=== PATIENT | male | born 1980 | race Two or more races ===

== ENCOUNTER 2016-08-01 11:56 | Emergency (ER) | payer OTHER ==
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
[2016-08-01 12:54] LABS: ABSOLUTE LYMPHOCYTES (AUTO) 2.4 10^3/uL (0.5-4.7); ABSOLUTE MONOCYTES (AUTO) 0.4 10^3/uL (0.1-1.4); ABSOLUTE NEUT (AUTO) 4.5 10^3/uL (1.7-8.2); BASOPHILS % (AUTO) 0.4 % (0-2); EOSINOPHILS % (AUTO) 0.4 % (0-6); HEMATOCRIT 43.5 % (37.9-51.0); HEMOGLOBIN 14.6 g/dL (13.5-17.0); HGB HCT DIFFERENCE 0.3; LYMPHOCYTES % (AUTO) 32.7 % (13-45); MEAN CORPUSCULAR HGB CONC 33.6 g/dL (32.0-36.0); MEAN CORPUSCULAR VOLUME 83 fl (80-97); MONOCYTES % (AUTO) 5.4 % (3-13); RED BLOOD COUNT 5.22 10^6/uL (4.35-5.55); RED CELL DISTRIBUTION WIDTH 13.7 % (11.5-14.0); SEGMENTED NEUTROPHILS % (AUTO) 61.1 % (42-78); WHITE BLOOD COUNT 7.3 10^3/uL (4.0-10.5)
[2016-08-01 13:03] LABS: APPEARANCE,URINE CLEAR; BILIRUBIN,URINE NEGATIVE (NEGATIVE); GLUCOSE, URINE 50 mg/dL (NEGATIVE); KETONES,URINE NEGATIVE (NEGATIVE); LEUKOCYTE ESTERASE,URINE NEGATIVE (NEGATIVE); NITRITE,URINE NEGATIVE (NEGATIVE); PROTEIN,URINE NEGATIVE (NEGATIVE); URINE SPECIFIC GRAVITY 1.027; UROBILINOGEN,URINE NEGATIVE mg/dL (<2.0)
[2016-08-01 13:11] LABS: ALANINE AMINOTRANSFERASE 40 U/L (21-72); ALBUMIN 4.4 g/dL (3.5-5.0); ALKALINE PHOSPHATASE 92 U/L (38-126); ANION GAP 15 (5-19); ASPARTATE AMINO TRANSFERASE 27 U/L (17-59); BILIRUBIN,DIRECT 0.2 mg/dL (0.0-0.4); BILIRUBIN,TOTAL 0.6 mg/dL (0.2-1.3); BLOOD UREA NITROGEN 17 mg/dL (7-20); CALCIUM 9.6 mg/dL (8.4-10.2); CARBON DIOXIDE 27 mmol/L (22-30); CHLORIDE 102 mmol/L (98-107); CREATININE RESULT 0.78 mg/dL (0.52-1.25); GLUCOSE 138 mg/dL (75-110); LIPASE 55.8 U/L (23-300); POTASSIUM 4.4 mmol/L (3.6-5.0); SODIUM 144.1 mmol/L (137-145); TOTAL PROTEIN 7.3 g/dL (6.3-8.2)
[2016-08-01] MEDS ORDERED: NORMAL SALINE 1000 ML 1,000 ML IV ONE (13:25)
[2016-08-01] MEDS ORDERED: CIPROFLOXACIN HCL 500 MG TABLET PO ONE (18:45)
[2016-08-01] MEDS ORDERED: METRONIDAZOLE 500 MG TABLET PO ONE (18:45)
[2016-08-01 20:41] VITALS: BP 135/80
== END 2016-08-01 19:03 | disposition home or self-care (01) ==
LOC: ER 11:56
DX: K52.89 Other specified noninfective gastroenteritis and colitis (principal); R10.32 Left lower quadrant pain; R03.0 Elevated blood-pressure reading, without diagnosis of hypertension
CPT/HCPCS: 36415; 74177; 80053; 81001; 83690; 85025; 99284

== ENCOUNTER → 2016-09-23 | Outpatient (CLI) | payer OTHER ==
--- NOTE | 2016-10-01 09:28 | RADIOLOGY REPORT (SQ) ---
EXAM DESCRIPTION: CT HEAD WITHOUT COMPLETED DATE/TIME: 09/23/2016 8:34 pm REASON FOR STUDY: CHOLESTEATOMA OF ATTIC, LEFT EAR H71.02 CHOLESTEATOMA OF ATTIC, LEFT EAR COMPARISON: CT brain 04/04/2014 TECHNIQUE: Noncontrasted thin section axial images through the temporal bones and skull base were ob tained and reviewed at bone windows and bone algorithm with coronal and sagittal reconstructions. All CT scanners at this facility use dose modulation, iterative reconstruction, and/or weight based d osing when appropriate to reduce radiation dose to as low as reasonably achievable (ALARA). [facility]: Dose Right [facility]: CareDose [facility]: Dose Right [facility]: Teradose 4D [facility]: Nobl RADIATION DOSE: 19.40 mGy. LIMITATIONS: None. FINDINGS: RIGHT SIDE: EXTERNAL AUDITORY CANAL: Widely patent. TYMPANIC MEMBRANE: No masses, thickening or medial retraction. OSSICLES AND MIDDLE EAR CAVITY: Normal ossicles. No middle ear masses or fluid. INNER EAR STRUCTURES: Normal vestibule and cochlea. Normal aqueducts. INTERNAL AUDITORY CANAL: Normal bony canal without narrowing or widening. No calcified or ossified m asses. TEMPOROMANDIBULAR JOINT: Normal. MASTOID AIR CELLS: Trace fluid in the right mastoid air cells LEFT SIDE: EXTERNAL AUDITORY CANAL: Widely patent. TYMPANIC MEMBRANE, OSSICLES AND MIDDLE EAR CAVITY: There is thickening of the upper half of the left tympanic membrane, extending into the epitympanum between the ossicles and scutum, into the superior half of the middle ear cavity encasing the incuostapedial joint. Malleus is significantly deminerali zed. Incus partially demineralized. Stapes is not well seen. This most likely represents a cholest eatoma, best shown on coronal images 168-178, and axial images 79 through 93. Soft tissue extends po steriorly into the pyramidal recess of the middle ear cavity. Overall, the soft tissue measures 8 mm transverse by 4.5 mm craniocaudad by 6 mm AP INNER EAR STRUCTURES: Normal vestibule and cochlea. Normal aqueducts. INTERNAL AUDITORY CANAL: Normal bony canal without narrowing or widening. No calcified or ossified m asses. TEMPOROMANDIBULAR JOINT: Normal. MASTOID AIR CELLS: Left mastoid fluid. CENTRAL SKULL BASE: Normal foramina. No lytic or blastic lesions. INFERIOR BRAIN: Limited view. No acute findings. LIMITED VIEW OF PARANASAL SINUSES IN THE FIELD OF VIEW: Normal. IMPRESSION: Soft tissue in the left epitympanum surrounding the ossicles, with demineralization of o ssicles and extension into the pyramidal recess of the middle ear cavity. This most likely represent s a cholesteatoma. TECHNICAL DOCUMENTATION: JOB ID: [id number] Quality ID # [id number]: Final reports with documentation of one or more dose reduction techniques (e.g., Au tomated exposure control, adjustment of the mA and/or kV according to patient size, use of iterative reconstruction technique) 2010 [employer]- All Rights Reserved
== END ==
LOC: RAD 07:32
PROVIDERS: ATTEND Otolaryngology
DX: H71.02 Cholesteatoma of attic, left ear (principal)
CPT/HCPCS: 70450

== ENCOUNTER 2016-12-29 06:38 | Day surgery (SDC) | payer OTHER ==
[2016-12-29] MEDS ORDERED: LIDOCAINE 1%/EPINEPHRINE INJ 20 ML VIAL ONE ×2 (06:53→06:55)
[2016-12-29] MEDS ORDERED: CIPROFLOXACIN HCL/DEXAMETH OTIC DROP 7.5 ML ONE (06:53)
[2016-12-29] MEDS ORDERED: EPINEPHRINE INJ 30 MG/30 ML VIAL ONE (06:54)
[2016-12-29] MEDS ORDERED: MIDAZOLAM 2 MG/2 ML INJ ONE ×2 (06:58→07:11)
[2016-12-29] MEDS ORDERED: ONDANSETRON HCL INJ/PF 4 MG/2 ML SDV ONE (07:02)
[2016-12-29] MEDS ORDERED: FENTANYL CITRATE INJ/PF 250 MCG/5 ML AMPULE ONE (07:02)
[2016-12-29] MEDS ORDERED: ACETAMINOPHEN 100 ML IV ONE (07:03)
[2016-12-29] MEDS ORDERED: DEXAMETHASONE SOD PHOS INJ 10 MG/1 ML VIAL ONE (07:03)
[2016-12-29] MEDS ORDERED: SUCCINYLCHOLINE CHLORIDE INJ 200 MG/10 ML VIAL ONE (07:03)
[2016-12-29] MEDS ORDERED: LIDOCAINE 0.5% INJ-PF (5 MG/ML) 50 ML SDV ONE (07:03)
[2016-12-29] MEDS ORDERED: PROPOFOL INJ 200 MG/20 ML VIAL IV ONE (07:03)
[2016-12-29] MEDS ORDERED: SCOPOLAMINE HYDROBROMIDE 1.5 MG PATCH.TD72 TD PRN (07:26)
[2016-12-29] MEDS ORDERED: BACITRACIN ZINC OINTMENT 15 GM TP PRN (08:46)
[2016-12-29] MEDS ORDERED: HYDROMORPHONE HCL INJ/PF 2 MG/ML AMPULE ONE (11:49)
[2016-12-29] MEDS ORDERED: WATER FOR INJECTION,STERILE 10 ML SDV ONE (12:12)
[2016-12-29] MEDS ORDERED: ACETAMINOPHEN 325 MG TABLET ONE (14:24)
[2016-12-29] MEDS ORDERED: FENTANYL CITRATE INJ/PF 100 MCG/2 ML AMPUL ONE (14:46)
--- NOTE | 2016-12-29 23:32 | OPERATIVE REPORT E ---
Operative Report NAME: OSCAR GRANT : 1980 AGE: 36Y DATE OF SURGERY: 12/29/2016 ROOM: PREOPERATIVE DIAGNOSIS: Left attic cholesteatoma. POSTOPERATIVE DIAGNOSES: 1. Large attic cholesteatoma. 2. Absent left incus and stapes superstructure and erosion of the head of the malleus. OPERATION PERFORMED: 1. Left modified radical mastoidectomy with tympanoplasty. 2. Facial nerve monitoring x1 hour. SURGEON: RADHA PEARL M.D. AMMONIUM HYDROXIDE OPERATOR: None. ANESTHESIA: General, Dr. Krishna with Dorene Tom CRNA. PRIMARY CARE PROVIDER: JEREMIAS Meraz PRE-OP NOTE: This is a 36-year-old man originally from the [facility] [place] who has been followed in this facility since February of 2013. He was seen at that point by Dr. Lobo Yen and actually underwent bilateral endoscopic sinus surgery. In July 2013 he was referred back to the office to have his ears cleaned because he could not have an audiometric assessment done because of cerumen impaction. Having done that, it was clear that he had fluid in the left ear and an air fluid level on the right. In September of 2013 he underwent an office myringotomy on the left-hand side. In followup, it was noted that the tube was patent, 6 months later, although Dr. Yen noticed an "abnormality" behind that left drum which may be significant. There was an air fluid level on the right. Eventually, he underwent a right myringotomy and tube and at followup, in late to mid February of 2014, that tube was functioning fine. The next time he was seen was on 08/20/2016, and he reported that the tube that he had had placed in the left ear had worked well for him for years. He had been going to the [place] for his care in between times. He noted new onset bleeding from this left ear at this time, and he attributed that to having been in a hot tub while on vacation in [place]. The [place] gave him drops for his ear and then one of the [place] physicians apparently retrieved the tube out of the left external canal. However, he continued to have daily bloody otorrhea. Microscope exam at the time was difficult, and he was placed on Cortisporin otic suspension to soften up the dried blood clot and then he was seen back in followup approximately a week later, and, at that point, suctioning revealed an attic cholesteatoma. He was then scheduled for a CT scan of the temporal bones at [facility] and also for an audiometric assessment. The CT scan was positive for a soft tissue mass in the left attic. There is also mastoid sclerosis bilaterally, but this is much more obvious on the left-hand side, together with lateralization of the left sigmoid sinus which is very close to the outer cortex of the bone there. There was additionally soft tissue density within both the left middle ear, the mastoid and the aditus ad antrum. This appeared to involve the ossicles as well. The tegmen appeared clear. He was scheduled for a left modified radical tympanomastoidectomy and consent was obtained at that time. In the time it took to obtain an authorization for all this, the patient indicated that he would like to delay surgery until December. However, even though the patient was informed that that was not medically advisable, he continued to state that he wanted to wait until late December. He now comes in to have this procedure done. He was seen in pre-op yesterday. The patient was seen and identified in the pre-op holding area. His is present, together with his daughter and his own mother and his younger brother. The left ear was then marked for laterality. The left postauricular area was cleansed with an alcohol prep pad and dried and then the intended incision line was marked out with a skin-marking pen together with crosshatching for matching up the wound edges. The patient was then taken to the operating room, placed in supine position, general anesthesia was induced and an oral endotracheal tube was placed. The patient was carefully positioned. The left ear was further shaved. It was decided to place a Mccabe catheter at this point, as the intended procedure was going to likely take longer than 3 hours. The facial nerve monitoring electrodes were then all placed and tested and appeared to be functioning satisfactorily. The left ear was then prepped and draped for otologic surgery. A short timeout was taken and all issues relating to the patient's identity, his positioning on the table, the procedures to be undertaken, and the risks inherent thereto were all discussed and there were no matters arising. The operating microscope was then brought into the field and the left ear was examined. The ear was irrigated multiple times and suctioned. A great deal of desquamating material was removed. The attic perforation was identified with cheesy squamous debris emanating from this. The external canal was then infiltrated using 1% lidocaine with 1:100,000 epinephrine using a 25 gauge needle and control syringe. The same material was used to infiltrate the postauricular skin crease area. Radial incisions were then brought out at approximately 6 o'clock and 12 o'clock using a sickle knife. These were joined on the bony ear canal with a round canal knife, leaving a generous posterosuperior corner. A tympanomeatal flap was developed for a short distance but not as far as the annulus. The laterally-based posterior canal flap was then developed in a lateral direction for a short distance. Next, the skin incision was made with a #15 blade on a #7 handle. Bleeding points were secured with needle point electrocautery, initially set at 25 on coagulating current. Dissection was done from here using curved Iris scissors. This instrument was utilized to take the incision down to the level of the "fool's fascia." Dissection was then taken anteriorly, following the inferior border of the temporalis muscle here. The inferior border of the temporalis muscle was then confirmed using needle point electrocautery. A perpendicular incision was then dropped at right angles from that, using needle point electrocautery, passing inferiorly along the lateral aspect of the left mastoid cortex. Periosteal elevation was then done. Weitlaner self-retaining retractor was inserted. The periosteal elevation was done as far as the bony external auditory canal. A [place] elevator was then utilized to find the spine of Henle which was not particularly well marked. The laterally-based posterior canal wall flap was then retracted back through the external canal using a 2-0 chromic catgut suture. A large piece of fool's fascia was then harvested and cleansed and stored in the fascia press temporarily. Once all the moisture had been squeezed out of it, it was placed on an inverted metal medicine cup to dry. Next, a large piece of temporalis fascia was harvested and this was cleansed and stored in the fascia press. Bleeding points were secured with needle point electrocautery. A Gilliland self-retaining retractor was inserted, and the external canal was examined with the microscope . It became evident that there was reduplication of the external canal bone where the tympanic ring attached to the temporal bone. This was carefully drilled down using a 2 mm kathleen suman with copious irrigation. This allowed for exploration down to the attic perforation. Elevation of the tympanomeatal flap was then taken down to the annulus. The chorda tympani nerve was then identified. It rapidly became apparent that this appeared to be lying in contact with the cholesteatoma sac, which appeared to be passing inferiorly and medial to that structure. Careful elevation was therefore done of the annulus inferior to this point. It rapidly became apparent that there was a large cholesteatoma sac passing inferiorly into the middle ear for a considerable distance, the dimensions of which could not easily be ascertained at this point. It was therefore decided to perform an antrotomy and establish the level of disease evident in the aditus ad antrum and into the mastoid antrum itself. Accordingly, a large cutting suman was taken and drilling was commenced over the mastoid cortex. The mastoid bone was fairly sclerotic. There were areas of chicken fat and straw-colored fluid. The sigmoid sinus was found in the expected lateral location. This was carefully skeletonized. Dissection was taken inferiorly down into the mastoid tip. The dissection was then taken superiorly to Citelli's angle. This was confirmed. The dissection was then taken forwards following the middle cranial fossa dura. The antrotomy was gently widened but it rapidly became apparent that there was a large cholesteatoma sac passing posteriorly into the mastoid. Gentle palpation of this revealed just how big it was and it was felt likely that there was involvement of the incus. It did not, therefore, seem profitable to leave the posterior canal wall intact. The posterior canal wall was then taken down, initially using cutting suman. A kathleen suman was utilized more medially and the bridge was finally broken using a Stapes curette. This was utilized to take some of the facial ridge in an inferior direction as well as a superior direction. Palpation here again revealed a cholesteatoma sac. This was gently manipulated using a Whirlybird, and the sac was manipulated first in a superior direction and then in a lateral direction until the lateral semicircular canal was exposed. Fortunately, this structure had not apparently been eroded. However, it became clear that the incus had completely disappeared. Dissection of the sac from the roof of the aditus ad antrum and the antrum itself was then undertaken. Further dissection of the roof was done to widen it. This allowed for more mobilization of the sac which could now be lifted in a lateral direction. The horizontal portion of the facial nerve canal came into view and this appeared to be intact. The facial ridge could now be taken down more safely, keeping the horizontal portion of the facial nerve canal and the genu in view. The supra-pyramidal tract of cells was opened using the Stapes curette and a Ethan knife. This allowed for further safe lowering of the facial ridge. Kathleen suman was utilized to drill down the posterior bony canal wall near the annulus in order to allow better visualization of the middle ear. The sac was gently mobilized in the middle ear in an anterior direction. Gently, the chorda tympani nerve was teased off the cholesteatoma sac. This was then divided with Bellucci scissors close to its exit point from the posterior canal wall. It could then be reflected forwards. The sac was then mobilized anteriorly, following the stapedius tendon. The sac was carefully dissected off the inferior border of the horizontal portion of the facial nerve and then gradually the sac could be teased out of the oval window niche. The Stapes superstructure was found to be completely eroded away but the footplate was present. The sac was then gently lifted off the promontory. An effort was now made to lift the lowest portion of the sac out of the middle ear. This was gently mobilized. It was found that the sac was starting to stick to the medial aspect of the handle of the malleus. That attachment was gently in a blunt fashion. A return was then made to the region of the horizontal portion of the facial nerve and a dissection following the medial wall of the middle ear above that point was done until the processus cochleariformis was found together with the tensor tympani tendon. It was now possible to peel the sac off the roof of the middle ear in an inferior direction, and in so doing pieces of cholesteatoma material in the region of the attic opening were retrieved with suction. The head of the malleus was found to be partially eroded away but the sac could be teased off the posterior aspect of this in an inferior direction. The sac could then be peeled off the posterior aspect of the neck and the short process of the malleus and, at this point, it was possible to lift out the entire cholesteatoma sac in 1 piece and this was handed off to the Circulating Nurse to transfer in formaldehyde to the Pathology Department for histological analysis. The middle ear was now irrigated with copious amounts of saline. This was all suctioned out. The malleus was, of course, hypermobile. A malleus head nipper was then taken and the neck of the malleus was transected and the eroded head of the malleus was placed in sterile water in hopes of destroying any lasting microscopic cholesteatoma cells. An inspection of the middle ear revealed that the remainder of the middle ear appeared healthy with no erosions of the horizontal portion of the facial nerve and none of the lateral semicircular canal. The eustachian tube opening was identified and was completely plugged with khaki-colored mucous membrane. This was reamed out using a Ethan knife and removed and the eustachian tube was now open. An edge of the tympanic membrane was now elevated off the short process of the malleus and off the anterior malleal ligament to allow for the placement of a temporalis fascia graft. The same thing was done on the canal skin anteriorly. The mastoid bowl was now addressed and was burnished, both using a cutting suman and also a large kathleen suman until it was smooth. The mastoid tip was then addressed. The edges were beveled. The mastoid tip was lowered considerably using a large cutting suman. The CT scan appeared to have demonstrated a large mastoid emissary vein, and fortunately, this did not appear, surgically. The Stapes footplate appeared to be mobile. The portion of eroded malleus head was now inspected and was cleansed using a Ethan knife under high magnification. It was then decided to place this over the Stapes footplate in the forlorn hope that this might remain and perhaps allow for the production of a form of myringostapediopexy. It was located in place using small strips of Gelfoam soaked in Ciprodex otic suspension. The middle ear was now completely filled with the same material. The temporalis fascia graft was then tucked underneath the flap of tympanic membrane anteriorly over the lateral aspect of the short process of the malleus and the anterior malleal ligament. It was then lead up onto the superior canal wall and also over the facial ridge and then down over the region of the lateral semicircular canal. The remains of the tympanic membrane and tympanomeatal flap were then laid lateral to all of this and further pieces of large Gelfoam sponge, soaked in Ciprodex otic suspension, were placed lateral to all of that. Two large pieces of fool's fascia were then used to line the mastoid bowl. Unfortunately, there was not enough in order to line the roof and so there maybe postoperative problems with granulation tissue occurring there. This was all covered with chips of Gelfoam sponge soaked in Ciprodex otic suspension. Next, a meatoplasty was created by extending the 12 o'clock incision using a nasal speculum and a 15-blade on a #7 handle. The same thing was done inferiorly. These incisions were confirmed through the postauricular incision using curved scissors until the meatus would admit the index finger of the surgeon's left hand. A portion of the conchal cartilage was then excised. This tissue was then sutured back to the posterior mastoid periosteum using a pair of 2-0 chromic catgut sutures. The rest of the mastoid periosteum was loosely approximated using 2-0 chromic catgut. The wound was then closed in layers using interrupted 2-0 chromic catgut sutures utilizing buried knots and then benson to the skin. A Finger-Cot pack was placed in the external auditory meatus using the "pinky finger" of a surgeon's glove filled with cotton. This was greased with bacitracin ointment and the open end was loosely closed using 2-0 chromic catgut. This was placed in the external auditory meatus as a form of stent. The wound was then cleansed, dried, coated with liberal amounts of bacitracin ointment and then dressed with Telfa, cotton-soaked in bacitracin into the conchal bowl and then a Kendall dressing was applied. The facial nerve monitoring leads were then removed. The patient was then awakened and extubated, light, and transferred to PACU in good condition having tolerated the procedure well. Estimated blood loss was 50 mL. Replacement was with 1700 mL of crystalloid. There was 850 mL in the Mccabe catheter. The patient appeared to tolerate the procedure well and there were no complications or untoward events. There was clinically intact left facial nerve function at the close of the procedure. DICTATING PHYSICIAN: RADHA PEARL M.D. [id number] PHY#: [id number] ID: [id number] JOB#: [id number] ACCT: [id number] cc:RADHA PEARL M.D. > [facility]
== END 2016-12-29 15:45 | disposition home or self-care (01) ==
LOC: SC 06:38
PROVIDERS: ATTEND Otolaryngology
PROC: 09Q60ZZ Repair Left Middle Ear, Open Approach (ICD-10-PCS; 2016-12-29)
PROC: 0NB60ZZ Excision of Left Temporal Bone, Open Approach (ICD-10-PCS; principal; 2016-12-29 07:30)
DX: H71.02 Cholesteatoma of attic, left ear (principal); H70.12 Chronic mastoiditis, left ear; H74.322 Partial loss of ear ossicles, left ear; I10 Essential (primary) hypertension; E66.9 Obesity, unspecified; Z68.38 Body mass index [BMI] 38.0-38.9, adult
CPT/HCPCS: 88304 ×2; 69645; J2250; J3490 ×5; J0171; J3010 ×2; J1170; J0330; J2405; J2704; J1100; J0131; 120